=== PATIENT | female | born 1995 | race Caucasian/White ===

== ENCOUNTER 2025-04-27 10:56 | Emergency (ER) | payer OTHER ==
[~2025-04-27] VITALS: Ht 162.6 cm; Wt 152.8 kg
[2025-04-27] MEDS: ACETAMINOPHEN 500 MG TAB PO ONE (13:42)
[2025-04-27] MEDS: NS (Normal Saline) 0.9% 1,000 ML IV ONE (13:44)
[2025-04-27 14:22] LABS: HCG, SERUM QUALITATIVE NEGATIVE (NEGATIVE)
[2025-04-27] MEDS: diphenhydrAMINE 50 MG/ML VIAL IV ONE (14:46)
[2025-04-27] MEDS: dexAMETHasone 4 MG/ML 1 ML VIAL IV ONE (16:27)
[2025-04-27] MEDS: MAG SULF 1GM/100ML (MAG RUN) 1 GM in IV 1 EA IV ONE (16:27)
[2025-04-27 17:41] VITALS: BP 141/78; TEMP 96.6; O2SAT 97
== END 2025-04-27 18:03 | disposition home or self-care (01) ==
LOC: M ED 10:56
DX: S06.0X0A Concussion without loss of consciousness, initial encounter (principal); S16.1XXA Strain of muscle, fascia and tendon at neck level, initial encounter; S46.011A Strain of muscle(s) and tendon(s) of the rotator cuff of right shoulder, initial encounter; W20.8XXA Other cause of strike by thrown, projected or falling object, initial encounter; Y92.89 Other specified places as the place of occurrence of the external cause; Y93.89 Activity, other specified; Y99.0 Civilian activity done for income or pay
CPT/HCPCS: 70450; 72125; 73030; 84703; 96361; 96365; 96375; 99284; J1100; J1200; J2765; J3475